=== PATIENT | female | born 1970 | race Two or more races ===

== ENCOUNTER → 2024-05-12 11:11 | Outpatient (REF) | payer BC, SELFPAY | LOC: RAD 11:11 | PROVIDERS: ATTENDING PHYSICIAN Radiology Diagnostic Radiology; FAMILY PHYSICIAN Family Medicine | DX: Z96.82 Presence of neurostimulator (principal) | CPT/HCPCS: 72072; 72100 ==

== ENCOUNTER → 2024-05-14 15:01 | Outpatient (REF) | payer BC, SELFPAY | LOC: PAVMRI 15:01 | PROVIDERS: ATTENDING PHYSICIAN Psychiatry & Neurology Neurology; FAMILY PHYSICIAN Family Medicine | DX: G43.909 Migraine, unspecified, not intractable, without status migrainosus (principal); G31.84 Mild cognitive impairment of uncertain or unknown etiology | CPT/HCPCS: 70551 ==

== ENCOUNTER → 2024-05-15 15:07 | Outpatient (REF) | payer BC, SELFPAY | LOC: PAVMRI 15:07 | PROVIDERS: ATTENDING PHYSICIAN Orthopaedic Surgery; FAMILY PHYSICIAN Family Medicine | DX: S46.012D Strain of muscle(s) and tendon(s) of the rotator cuff of left shoulder, subsequent encounter (principal) | CPT/HCPCS: 73221 ==